=== PATIENT | female | born 1975 | race Caucasian/White ===

== ENCOUNTER → 2021-02-03 12:53 | Outpatient (BNVA) | payer OTHER, SELFPAY | PROVIDERS: Visit Provider Advanced Practice Midwife ==

== ENCOUNTER → 2021-02-11 09:00 | Outpatient (BNVA) | payer OTHER, SELFPAY | PROVIDERS: Visit Provider Advanced Practice Midwife | DX: N92.1 Excessive and frequent menstruation with irregular cycle (principal) | CPT/HCPCS: 96372; 99211 ==

== ENCOUNTER 2021-02-22 15:58 | Outpatient (REF) | payer OTHER, SELFPAY ==
--- NOTE | ~2021-02-22 | US_ITS ---
EXAMINATION: US PELVIS CLINICAL INFORMATION: Encounter for gynecological examination. Excessive and frequent menstruation with irregular cycle. COMPARISON: None. TECHNIQUE: Ultrasound of the pelvis is performed using both transabdominal and transvaginal transducers along with Doppler. Transvaginal imaging is performed due to inadequate visualization transabdominally. FINDINGS: UTERUS: The uterus is retroverted and measures 8.4 x 4.3 x 5.3 cm. Total uterine volume 100.2 mL. There is a small amount of fluid in the cervix. The double wall endometrial thickness is 0.8 mm. The uterus is smooth in contour. There is somewhat heterogeneous myometrium with multiple small cysts which may be in the junctional zone. There is a fibroid in the left body measuring 1.6 x 1.2 x 1.3 cm. ADNEXA: Both ovaries are visualized. There is normal color flow to the adnexa. There is no ovarian torsion. There is no pelvic ascites or fluid collection. The right ovary is only seen transabdominally. Right ovary measures 2.0 x 1.2 x 1.3 cm. Volume 1.6 mL. Left ovary measures 3.5 x 2.3 x 2.4 cm. Volume 10.1 mL. There is a dominant follicle measuring 2.8 x 2.1 x 2.2 cm. US/US pelvic and transvaginal IMPRESSION: 1. Heterogeneous myometrium or junctional with multiple small cysts. 2. A 1.6 cm uterine fibroid.
== END 2021-02-22 15:59 | disposition home or self-care (01) ==
LOC: HO.US 15:58
PROVIDERS: PCP Family Medicine; Visit Provider Advanced Practice Midwife
DX: Z01.419 Encounter for gynecological examination (general) (routine) without abnormal findings (principal); N92.1 Excessive and frequent menstruation with irregular cycle; N92.4 Excessive bleeding in the premenopausal period
CPT/HCPCS: 76830; 76856

== ENCOUNTER → 2021-02-25 13:43 | Outpatient (BNVA) | payer OTHER, SELFPAY | PROVIDERS: PCP Family Medicine; Visit Provider Obstetrics & Gynecology | DX: N92.4 Excessive bleeding in the premenopausal period (principal); N93.9 Abnormal uterine and vaginal bleeding, unspecified | CPT/HCPCS: 99212 ==

== ENCOUNTER 2021-04-29 12:52 | Outpatient (REF) | payer OTHER, SELFPAY ==
[2021-04-29 13:35] LABS: Hematocrit 41.7 % (37.0-47.0); Hemoglobin 13.6 g/dl (12.0-16.0); Mean Corpuscular HGB Conc 32.6 g/dl (31.0-35.0); Mean Corpuscular Hemoglobin 26.4 pg (27.0-33.0); Mean Platelet Volume 9.3 fL (9.4-12.3); Platelet Count 258 X10*3/uL (160-400); Red Blood Count 5.15 X10*6/uL (4.20-5.50); Red Cell Distribution Width 16.2 % (11.0-16.0); White Blood Count 5.7 X10*3/uL (4.8-10.8)
[2021-04-29 14:11] LABS: HCG Quantitative < 2 mIU/mL
== END 2021-04-29 12:53 | disposition home or self-care (01) ==
LOC: HO.LAB 12:52
PROVIDERS: Absent Provider Obstetrics & Gynecology; PCP Family Medicine; Visit Provider Advanced Practice Midwife
DX: Z30.42 Encounter for surveillance of injectable contraceptive (principal); N93.9 Abnormal uterine and vaginal bleeding, unspecified
CPT/HCPCS: 36415; 84702; 85027; 96372; 99211

== ENCOUNTER 2023-12-07 07:59 | Outpatient (AMB) | payer OTHER, SELFPAY ==
--- NOTE | 2023-12-07 08:09 | A.OFFPC_ITS ---
Vital Signs 12/07/23 08:13 Height 5 ft 0.63 in Weight 130 lb BMI 24.9 BP 128/84 Blood Pressure Location Lt brachial Position Sitting Respiration 14 Pulse 85 Pulse Source Pulse Oximeter Temp 98.4 F Temp Source Oral Pulse Oximetry (%) 99 Oxygen Delivery Method Room Air Intake Visit Reasons: FAN from Intake Note: New patient visit Data Compiler Required: No Allergies No Known Allergies Allergy (Verified 12/07/23 08:09) Medication List - Last Reconciled 12/07/23 by Leeanne Wade PA-C No Known Home Meds Tobacco use date assessed: 12/07/23 Dental Screening Dental Screen Date: 12/07/23 Did you have a dental visit in the last 12 months?: Yes Did you have a dental problem in the last 6 months where you did not have access to dental care?: No Was dental information given to patient?: Patient has dentist HPI FAN from HPI Details Patient is a 48-year-old female who presents today to transfer care/cpe. She has a hx of gerd (well controlled with diet) and generalized anxiety. Psych: Anxiety is well-controlled with meditation and breathing exercises. No SI/HI. Was on antianxiety medication approximately 20 years ago. Has never been hospitalized for this. CV: Blood pressure today in the office 128/84. -she does complain today of right finger tip pain that started about a year ago. She states that it is on the 2nd right finger and that the knuckle looks enlarged and is tender at times. No trauma. Mammogram: overdue-never had Pap: overdue- referral to [facility] Colonoscopy: overdue Fam hx: sister has thyroid ca, maternal uncle x2 with colon ca around age 70, maternal grandmother breast ca 80s [facility], [facility] Medical History (Updated 12/07/23 @ 08:46 by Leeanne Wade PA-C) Excessive menstruation with irregular cycle Menorrhagia, premenopausal Aftercare following left shoulder joint replacement surgery Surgical History H/O breast augmentation S/P abdominoplasty Hx of section History of tubal ligation Family History Maternal Grandmother Breast CA Social History Housing: House Alcohol intake: current Alcohol intake frequency: holidays/special occasions only Patient Tobacco Use Status: Current everyday Tobacco user Cigarettes Per Day: 12 Years Smoked: 15 e-Cigarette/Vaping Use: Never Used Second Hand Smoke Exposure: No service: No Current occupational status: employed and unemployed 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 1. Little interest or pleasure in doing things: not at all 2. Feeling down, depressed, or hopeless: not at all 3. Trouble falling or staying asleep, or sleeping too much: nearly every day 4. Feeling tired or having little energy: more than half the days 5. Poor appetite or overeating: not at all 6. Feeling bad about yourself - or that you are a failure or have let yourself or your family down: not at all 7. Trouble concentrating on things, such as reading the newspaper or watching television: more than half the days 8. Moving or speaking so slowly that other people could have noticed. Or the opposite - being so fidgety or restless that you have been moving around a lot more than usual: not at all 9. Thoughts that you would be better off or of hurting yourself in some way: not at all Total score: 7 Depression Screening Interpretation: Positive Depression Screening Follow-up: Existing condition and Declines treatment Depression Screening Done: Yes 21778 - PHQ-9 Billing: Yes Source: Developed by Drs. Chevy Amador, Genie Light, Eris Ferrer and colleagues, with an educational luz from [employer]. Thrive Questionnaire Date Thrive assessed: 12/07/23 I am a: Patient What is your living situation today?: I have a steady place to live Within the past 12 months, did the food you bought not last and you didn't have the money to get more?: Never true Within the past 12 months, did you worry whether your food would run out before you got money to buy more?: Never true Do you have trouble paying for medicines?: No Do you have trouble getting transportation to medical appointments?: No Do you have trouble paying your heating and electricity bill?: No Do you have trouble taking care of your child, family member or friend?: No Do you have trouble with day-to-day activities such as bathing, preparing meals, shopping, managing finances, etc.?: No Are you currently unemployed and looking for a job?: No Are you interested in more education?: No Please select the resources that you would like help with: None Currently or been in a relationship where the following occur: no concerns reported THRIVE Score: 0 AUDIT C Alcohol Use Questionnaire (AUDIT-C) 1. How often do you have a drink containing alcohol?: Monthly or less (5 times a year) 2. How many drinks containing alcohol do you have on a typical day when you are drinking?: 3 or 4 3. How often do you have six or more drinks on one occasion?: Never Total Score: 2 ANDRÉS-7 AMB Questionnaire ANDRÉS-7 Date ANDRÉS - 7 assessed: 12/07/23 Feeling nervous, anxious, or on edge: 2 = More than half the days Not being able to stop or control worryin = More than half the days Worrying too much about different things: 2 = More than half the days Trouble relaxin = Nearly every day Being so restless that it is hard to sit still: 2 = More than half the days Becoming easily annoyed or irritable: 2 = More than half the days Feeling afraid as if something awful might happen: 1 = Several days Total ANDRÉS-7 score (0-4 normal; 5-9 mild; 10-14 moderate; 15-21 severe): 14 Source: Developed by Drs. Chevy Amador, Genie Light, Eris Ferrer and colleagues, with an educational luz from [employer]. ANDRÉS-7 Assessment Billing ANDRÉS-7 Assessment Tool: ANDRÉS-7 Assessment 21252 Physical exam (Primary Care) Tobacco/Smoking Status: Tobacco use Status Patient Tobacco Use Status Former Tobacco user 12/05/23 11:37 e-Cigarette/Vaping Use Never Used 12/05/23 11:37 Are you ready to quit: No Tobacco cessation counseling provided: Yes Items discussed: Nicotine replacement Relapse Prevention: discussed the importance of a supportive environment and discussed dietary, exercise and/or lifestyle changes CPT code: 13511 - 4-10 Minutes (tried chantix in the past and does not want to again. discussed wellbutrin and patches) Depression Screening Interpretation: Positive Depression Screening Follow-up: Existing condition and Declines treatment Currently or been in a relationship where the following occur: no concerns reported Const Orientation/consciousness: patient oriented x3 HENMT Ears: hearing grossly normal bilaterally General nose exam: No nasal polyps present Face and sinus: Yes sinuses nontender Mouth: Normal oral and palatal mucosa present Eyes Pupils: Equal, round and reactive pupils present EOM: EOMs intact bilaterally Neck Neck: Yes full ROM and Yes no lymphadenopathy Thyroid: Thyroid normal Lymphatic: no lymphadenopathy noted Chest Chest palpation & inspection: normal inspection of the chest Resp Auscultation: clear to auscultation bilaterally Cardio Rate: regular rate Rhythm: regular rhythm Heart sounds: S1 normal heart sound present and S2 normal heart sound present Peripheral pulses: Peripheral pulses 2+ throughout GI Other: Soft, nontender Inspection: Yes normal to inspection Palpation (GI): Soft to palpation and Other GI palpation findings present (nontender, no cva tenderness) Auscultation: normoactive bowel sounds General: Yes no CVA tenderness Back/Spine/Pelvis Other: Nontender Back: no CVA tenderness Skin General skin exam: no rashes or lesions noted Neuro General: patient oriented x3, gait normal and no focal motor deficits Cranial nerves: Yes Equal, round and reactive pupils present Motor exam (neuro): 5/5 motor strength present throughout Sensory Exam: double simultaneous stimulation for sensation normal Coordination: [id number] test normal and Romberg test negative Extrem Other: There is some swelling noted over the right 2nd finger D IP on the medial aspect. Nontender. Full range of motion. Good capillary refill. Sensation intact. General: Yes normal to inspection and Yes full ROM Psych Affect: normal affect Attitude: cooperative Thought process: Normal thought process present Thought content: Normal thought content present Insight: Good insight present (Psych) Judgement: Good judgement present (Psych) Results Reviewed Results Reviewed: Laboratory Tests 04/29/21 13:24 WBC 5.7 RBC 5.15 Hgb 13.6 Hct 41.7 Assessment and Plan Assessment & Plan (1) Routine general medical examination at a health care facility: Code(s): Z00.00 - Encounter for general adult medical examination without abnormal findings Plan: reviewed colonoscopy referral ordered mammo ordered referral to [facility] (2) Finger pain, right: Code(s): M79.644 - Pain in right finger(s) Plan: xr ordered. try diclofenac gel (3) Smoker: Code(s): F17.200 - Nicotine dependence, unspecified, uncomplicated Plan: We discussed smoking cessation at length. She started smoking again about 5 years ago and does not feel like she quit right now. She states that if she quits she will do it cold turkey. Does not want medication as she nightmares with Chantix she will if she changes her mind. Orders: Orders Comprehensive [place]. Panel Fast Today Z00.00 - Encounter for general adult medical examination without abnormal findings Lipid Panel Today Z00.00 - Encounter for general adult medical examination without abnormal findings MM screening mammo BI Today Z12.31 - Encounter for screening mammogram for malignant neoplasm of breast Complete Blood Count Auto Diff Today Z00.00 - Encounter for general adult medical examination without abnormal findings TSH reflex Free T4 Today Z00.00 - Encounter for general adult medical examination without abnormal findings XR finger RT min 2V Today M79.644 - Pain in right finger(s) Referrals [facility] Referral Z01.419 - Encounter for gynecological examination (general) (routine) without abnormal findings Gastroenterology Referral Z12.11 - Encounter for screening for malignant neoplasm of colon Coding Level of Care Code Est Pt Prev Care 40-64y(10684) Diagnoses Routine general medical examination at a health care facility Z00.00 Finger pain, right M79.644 Smoker F17.200 Additional Codes Vital Signs *Quality* - CPT code: 85245 - 4-10 Minutes ([id number]) ANDRÉS-7 Assessment Billing - ANDRÉS-7 Assessment Tool: ANDRÉS-7 Assessment 72760 ([id number])
[2023-12-07 08:13] VITALS: BP 128/84; PULSE 85; RESP 14; TEMP 36.9; O2SAT 99; BMI 24.9
== END 2023-12-07 08:43 | disposition home or self-care (01) ==
PROVIDERS: PCP Family Medicine; Visit Provider Physician Assistant
DX: Z00.00 Encounter for general adult medical examination without abnormal findings (principal); M79.644 Pain in right finger(s); F17.200 Nicotine dependence, unspecified, uncomplicated
CPT/HCPCS: 99396

== ENCOUNTER 2023-12-07 08:50 | Outpatient (REF) | payer OTHER, SELFPAY ==
[2023-12-07 11:42] LABS: MANUAL DIFF FLAG NO
[2023-12-07 11:59] LABS: Basophils Percent Auto 0.2 % (0-2); Eosinophils Percent Auto 0.4 % (0-4); Hematocrit 43.6 % (37.0-47.0); Hemoglobin 14.6 g/dl (12.0-16.0); Imm Gran Abs Auto 0.01 X10*3/uL (0.00-0.03); Imm Gran Pct Auto 0.2 % (0.0-0.4); Lymphocytes Absolute Auto 1.5 X10*3/uL (1.2-4.9); Lymphocytes Percent Auto 32.2 % (20-40); Mean Corpuscular HGB Conc 33.5 g/dl (31.0-35.0); Mean Corpuscular Hemoglobin 28.5 pg (27.0-33.0); Mean Corpuscular Volume 85.2 fL (80.0-98.0); Mean Platelet Volume 9.5 fL (9.4-12.3); Monocytes Absolute Auto 0.3 X10*3/uL (0.1-1.2); Monocytes Percent Auto 6.6 % (2-11); Neutrophils Absolute Auto 2.8 x10*3/uL (2.0-8.3); Neutrophils Percent Auto 60.4 % (45-73); Platelet Count 246 X10*3/uL (160-400); Red Blood Count 5.12 X10*6/uL (4.20-5.50); Red Cell Distribution Width 13.1 % (11.0-16.0); White Blood Count 4.6 X10*3/uL (4.8-10.8)
[2023-12-07 12:25] LABS: Alanine Aminotransferase 19 U/L (0-31); Albumin Level 4.9 g/dL (3.5-5.0); Alkaline Phosphatase 75 U/L (39-117); Anion Gap 12 (12-20); Aspartate Amino Transferase 17 U/L (5-31); Bilirubin Total 0.4 mg/dL (0.0-1.0); Blood Urea Nitrogen 15 mg/dL (9-16); Calcium 10.5 mg/dL (8.4-10.2); Carbon Dioxide 27 mmol/L (22-29); Chloride 105 mmol/L (96-108); Cholesterol 207 mg/dL (<200); Estimated Glomerular Filt Rate > 60; Glucose Fasting 94 mg/dL (60-99); HDL Cholesterol 54 mg/dL (>40); LDL Cholesterol Calculated 134 mg/dL (<100); Potassium 4.1 mmol/L (3.3-5.1); Sodium 140 mmol/L (135-145); Total Protein 7.9 g/dL (6.5-8.0); Triglycerides 97 mg/dL (<150)
== END 2023-12-07 08:51 | disposition home or self-care (01) ==
LOC: HO.WFDLDS 08:50
PROVIDERS: Visit Provider Physician Assistant
DX: Z00.00 Encounter for general adult medical examination without abnormal findings (principal)
CPT/HCPCS: 36415; 80053; 80061; 84443; 85025

== ENCOUNTER 2024-01-08 15:33 | Outpatient (REF) | payer OTHER, SELFPAY ==
--- NOTE | ~2024-01-08 | MM_ITS ---
EXAMINATION: MM SCREENING DIGITAL BREAST TOMOSYNTHESIS, BILATERAL CLINICAL INFORMATION: Screening. Asymptomatic. COMPARISON: Mammography: This is a baseline mammogram. TECHNIQUE: Digital mammography is performed in craniocaudal and mediolateral oblique views along with computer-aided detection (CAD). Digital breast tomosynthesis is performed in implant-displaced craniocaudal and implant-displaced mediolateral oblique views along with computer-aided detection (CAD). Synthesized 2D images are generated from the tomosynthesis. FINDINGS: There are scattered areas of fibroglandular density (ACR BI-RADS breast composition Category b). There are bilateral, mammographically intact silicone breast implants. There are no significant masses, abnormal calcifications, or other abnormalities. MM/MM tomosynthesis screen imp BI IMPRESSION: There are no significant changes from prior study. ASSESSMENT: BI-RADS BI-RADS 1 - Negative RECOMMENDATION: Routine annual mammography screening. 1 year F/U This patient's information was entered into a reminder system with a target due date for their next mammogram.
== END 2024-01-08 15:34 | disposition home or self-care (01) ==
LOC: HO.MAMMO 15:33
PROVIDERS: PCP Physician Assistant; Visit Provider Physician Assistant
DX: Z12.31 Encounter for screening mammogram for malignant neoplasm of breast (principal)
CPT/HCPCS: 77063; 77067

== ENCOUNTER → 2024-01-08 15:45 | Outpatient (BNV) | payer OTHER, SELFPAY | PROVIDERS: PCP Physician Assistant; Visit Provider Radiology Diagnostic Radiology | DX: Z12.31 Encounter for screening mammogram for malignant neoplasm of breast (principal) | CPT/HCPCS: 77063; 77067 ==

== ENCOUNTER 2024-02-28 10:01 | Outpatient (AMB) | payer OTHER, SELFPAY ==
--- NOTE | 2024-02-28 10:02 | MHC.OFFVIS ---
Vital Signs 02/28/24 10:03 Height 5 ft 0.63 in Weight 131 lb BMI 25.1 BP 126/85 Blood Pressure Location Lt brachial Position Sitting Pulse 79 Intake Visit Reasons: Colonoscopy Screening Intake Note: New consult for 1st pre colonoscopy screening Patient cc: between diarrhea and constipation on and off, denies any other GI concern for today. 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 She is referred by Leeanne Wade of [facility] [place] [place] primary care. PMX Smoker GERD Anxiety Menometrorrhagia * SURGICAL HISTORY section Tubal ligation Abdominoplasty Breast augmentation Bicept tendon repair * ALLERGIES: no opiates r/t N/V * [employer] LABS: Laboratory Tests 12/07/23 08:52 WBC 4.6 L Hgb 14.6 Hct 43.6 Plt Count 246 Total Bilirubin 0.4 AST 17 ALT 19 Alkaline Phosphatase 75 TSH 0.70 TODAY'S VISIT This is her first colonoscopy She has suffered IBS-M, mother has similar, not hard stools but applesauce consistency. Lactose only thing will cause watery stools. She is not c/w fiber intake, she drinks a lot of water. She does have cramping in the looser stool phase. There is no known history of food allergies except for the lactose intolerance in the family, no known history of inflammatory bowel disease. She finds the symptoms somewhat uncomfortable with bloating and cramping and inconvenient so she would not mind having a bit of a more thorough workup. She denies any cardiac or respiratory problems. There are no prior problems with anesthesia or sedation NO ID problems Her maternal uncle had CRC she is unsure if her mother ever had colon polyps. Return office visit in 6 weeks go with the labs and consider if additional testing or stool samples are needed. No medical intervention was attempted today although using something like dicyclomine may be reasonable on a p.r.n. basis going forward or encouraging a fiber supplement to give her better bowel regularity. [facility] Medical History (Updated 02/28/24 @ 10:33 by DEBORAH Gutierrez) Cervical cancer screening Excessive menstruation with irregular cycle Menorrhagia, premenopausal Aftercare following left shoulder joint replacement surgery Surgical History H/O breast augmentation S/P abdominoplasty Hx of section History of tubal ligation Family History Maternal Grandmother Breast CA Social History Housing: House Alcohol intake: current Alcohol intake frequency: holidays/special occasions only Patient Tobacco Use Status: Current everyday Tobacco user Cigarettes Per Day: 12 Years Smoked: 15 e-Cigarette/Vaping Use: Never Used Second Hand Smoke Exposure: No service: No Current occupational status: employed and unemployed 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 Current occupational exposures/hazards: No Gender identity: Female Cognitive needs: No Hearing needs: No Vision needs: No Female Reproductive History Menstrual Age of Menarche: 11 Review of Systems Const Denies fatigue, Denies fever(s), Denies night sweats, Denies poor appetite and Denies weight loss ENT Reports Normal hearing present, Denies dental pain, Denies dysphagia, Denies hearing loss, Denies mouth pain, Denies odynophagia, Denies throat swelling, Denies tongue swelling and Reports other (Dentition adequate) Card Reports no additional complaints Resp Reports no additional complaints GI Details: Denies abdominal pain, Denies melena, Denies bloating, Denies hematochezia, Reports constipation, Denies GI cramping, Denies dysphagia, Denies excessive flatus, Denies early satiety, Reports heartburn, Reports diarrhea, Denies nausea, Denies odynophagia, Denies vomiting and Denies hematemesis Skin/Breast Denies pruritus, Denies lesions, Denies rash and Denies jaundice Neuro Reports Normal hearing present and Denies Abnormal speech present Endo Denies fatigue Aller/Immun Denies throat swelling and Denies tongue swelling Physical Exam Vital Signs: Last Vital Signs Pulse 79 02/28/24 10:03 BP 126/85 02/28/24 10:03 BMI result Body Mass Index 25.1 Const General: cooperative, no acute distress, well developed and well groomed Nutritional Appearance: well nourished and overweight Orientation/consciousness: oriented to person, oriented to place and oriented to time Limitations: No language barrier HEENT Head: Yes normocephalic and Yes atraumatic Eyes General: appearance normal, both eyes and all related structures Pupils: Equal, round and reactive pupils present Neck Neck: Yes normal visual inspection and Yes no lymphadenopathy Thyroid: Thyroid normal Resp Effort & Inspection: normal respiratory effort and able to speak in complete sentences Auscultation: clear to auscultation bilaterally Cardio Rate: regular rate Rhythm: regular rhythm Heart sounds: Normal, physiologic split S2 sound present Peripheral pulses: radial pulses present and posterior tibial pulses present GI Inspection: No distended, No Abdominal panniculus present and Yes striae Palpation (GI): Soft to palpation, nontender, no guarding, not rigid and No hepatosplenomegaly present Percussion: Yes normal to percussion Auscultation: normal bowel sounds Rectal Exam - Female: deferred Abdomen image: 1. Surgical scars 2. Skin General skin exam: no rashes or lesions noted, turgor normal, skin not dry, no jaundice, No spider nevi and no striae Rashes: no rashes Nails: normal Neuro General: oriented to person, oriented to place and oriented to time Cranial nerves: Yes Equal, round and reactive pupils present and Yes Normal hearing present Speech: No Abnormal speech present Extrem General: Yes normal to inspection, No clubbing, No cyanosis and No edema Psych Appearance: grossly normal and well kempt Mental Status: mental status grossly normal Speech and movement: Normal speech and movement present Affect: normal affect Attitude: cooperative Thought process: Normal thought process present and not confabulating Thought content: Normal thought content present Insight: Fair insight present (Psych) Judgement: Fair judgement present (Psych) Assessment & Plan Assessment & Plan (1) Diarrhea: Code(s): R19.7 - Diarrhea, unspecified Category: Medical Plan This is her first colonoscopy She has suffered IBS-M, mother has similar, not hard stools but applesauce consistency. Lactose only thing will cause watery stools. She is not c/w fiber intake, she drinks a lot of water. She does have cramping in the looser stool phase. There is no known history of food allergies except for the lactose intolerance in the family, no known history of inflammatory bowel disease. She finds the symptoms somewhat uncomfortable with bloating and cramping and inconvenient so she would not mind having a bit of a more thorough workup. She denies any cardiac or respiratory problems. There are no prior problems with anesthesia or sedation NO ID problems Her maternal uncle had CRC she is unsure if her mother ever had colon polyps. Return office visit in 6 weeks go with the labs and consider if additional testing or stool samples are needed. No medical intervention was attempted today although using something like dicyclomine may be reasonable on a p.r.n. basis going forward or encouraging a fiber supplement to give her better bowel regularity. Orders: Orders C Reactive Protein Today R19.7 - Diarrhea, unspecified Colonoscopy - GI Use Only Today Z01.818 - Encounter for other preprocedural examination Transglutaminase IgA Today R19.7 - Diarrhea, unspecified Transglutaminase Ab IgG Today R19.7 - Diarrhea, unspecified Rast Allergen Today R19.7 - Diarrhea, unspecified Medications: New sodium,potassium,mag sulfates 17.5-3.13-1.6 gram (Suprep Bowel Prep Kit) 480 mL orally; FOR COLONOSCOPY PREP 354 mL 0RF Coding Level of Care Code New Pt Level 3 (68702) Diagnoses Diarrhea R19.7
[2024-02-28 10:03] VITALS: BP 126/85; PULSE 79; BMI 25.1
== END 2024-02-28 10:42 | disposition home or self-care (01) ==
PROVIDERS: PCP Family Medicine; Visit Provider Nurse Practitioner
DX: R19.7 Diarrhea, unspecified (principal)
CPT/HCPCS: 99203

== ENCOUNTER → 2024-02-28 10:01 | Outpatient (BNVA) | payer OTHER, SELFPAY | PROVIDERS: PCP Family Medicine; Visit Provider Nurse Practitioner | DX: R19.7 Diarrhea, unspecified (principal) | CPT/HCPCS: 99202 ==

== ENCOUNTER 2024-02-28 12:46 | Outpatient (REF) | payer OTHER, SELFPAY ==
[2024-02-28 15:00] LABS: C Reactive Protein < 0.10 mg/dL (< or = 0.50)
[2024-02-28 15:05] LABS: Parathyroid Hormone Intact 65.4 pg/mL (8.7-77.1)
[2024-02-29 21:17] LABS: Transglutaminase Ab IgG <1.0 U/mL; Transglutaminase IgA <1.0 U/mL
[2024-03-01 15:13] LABS: Calcium, Ionized 5.2 mg/dL (4.7-5.5)
[2024-03-03 13:28] LABS: VITAMIN D (1,25 OH) D3 83 pg/mL; Vit D (1,25-Dihydroxy) Total 83 pg/mL (18-72); Vitamin D (1,25 OH) D2 <8 pg/mL
== END 2024-02-28 12:47 | disposition home or self-care (01) ==
LOC: HO.WFDLDS 12:46
PROVIDERS: Referring Provider Physician Assistant; Visit Provider Nurse Practitioner
DX: Z01.818 Encounter for other preprocedural examination (principal); R19.7 Diarrhea, unspecified; E83.52 Hypercalcemia
CPT/HCPCS: 36415; 82330; 82652; 83970; 86003; 86140; 86364

== ENCOUNTER 2024-04-12 12:52 | Outpatient (AMB) | payer OTHER, SELFPAY ==
--- NOTE | 2024-04-12 12:55 | A.OFFVIS_ITS ---
Vital Signs 04/12/24 13:10 Height 5 ft 0.63 in Weight 134 lb 0.657 oz BMI 25.6 BP 138/87 Blood Pressure Location Lt brachial Position Sitting Pulse 70 Intake Visit Reasons: 6 week follow up Intake Note: Ciera presents in follow up of diarrhea. CC: Patient reports doing the same, denies having any new GI concerns today. 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 Lactose only thing will cause watery stools. She is not c/w fiber intake, she drinks a lot of water. She does have cramping in the looser stool phase. There is no known history of food allergies except for the lactose intolerance in the family, no known history of inflammatory bowel disease. She finds the symptoms somewhat uncomfortable with bloating and cramping and inconvenient so she would not mind having a bit of a more thorough workup. She denies any cardiac or respiratory problems. There are no prior problems with anesthesia or sedation NO ID problems Her maternal uncle had CRC she is unsure if her mother ever had colon polyps. Return office visit in 6 weeks go with the labs and consider if additional testing or stool samples are needed. No medical intervention was attempted today although using something like dicyclomine may be reasonable on a p.r.n. basis going forward or encouraging a fiber supplement to give her better bowel regularity. Orders: Orders C Reactive Protein Today R19.7 - Diarrhea, unspecified Colonoscopy - GI Use Only Today Z01.818 - Encounter for other preprocedural examination Transglutaminase IgA Today R19.7 - Diarrhea, unspecified Transglutaminase Ab IgG Today R19.7 - Diarrhea, unspecified Rast Allergen Today R19.7 - Diarrhea, unspecified Medications: New sodium,potassium,mag sulfates 17.5-3.13-1.6 gram (Suprep Bowel Prep Kit) LABS: Laboratory Tests 02/28/24 12:48 Tiss Transglutamin IgG <1.0 Tiss Transglutamin IgA <1.0 Laboratory Tests 02/28/24 12:48 C-Reactive Protein < 0.10 RAST panel shows no significant food allergies RAST PANEL SHOWS NO SIGNIFICANT FOOD ALLERGY COLONOSCOPY 06/04/2024 BIOPSY TODAY'S VISIT We review all the labs that at this point it really seems evident that there is no disease process at work except for functional bowel disorder. Because she has IBS-M we discussed the role of fiber therapy as first-line treatment and I strongly suggest a supplement with something like Benefiber or Citrucel. She is also agreeable to having trial of dicyclomine as well. She is aware of her upcoming colonoscopy at this point I will see her after that. [facility] Medical History (Updated 04/12/24 @ 13:25 by DEBORAH Gutierrez) Pre-op examination Diarrhea Cervical cancer screening Excessive menstruation with irregular cycle Menorrhagia, premenopausal Aftercare following left shoulder joint replacement surgery Surgical History (Updated 04/12/24 @ 13:25 by DEBORAH Gutierrez) H/O breast augmentation S/P abdominoplasty Hx of section History of tubal ligation Family History Maternal Grandmother Breast CA Social History Housing: House Alcohol intake: current Alcohol intake frequency: holidays/special occasions only Patient Tobacco Use Status: Current everyday Tobacco user Cigarettes Per Day: 12 Years Smoked: 15 e-Cigarette/Vaping Use: Never Used Second Hand Smoke Exposure: No service: No Current occupational status: employed and unemployed 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 Current occupational exposures/hazards: No Gender identity: Female Cognitive needs: No Hearing needs: No Vision needs: No Female Reproductive History Menstrual Age of Menarche: 11 Review of Systems Const Denies fatigue, Denies fever(s), Denies night sweats, Denies poor appetite and Denies weight loss ENT Reports Normal hearing present, Denies dental pain, Denies dysphagia, Denies hearing loss, Denies mouth pain, Denies odynophagia, Denies throat swelling, Denies tongue swelling and Reports other (Dentition adequate) Card Reports no additional complaints Resp Reports no additional complaints GI Details: Denies abdominal pain, Denies melena, Denies bloating, Denies hematochezia, Reports constipation, Reports GI cramping, Denies dysphagia, Denies excessive flatus, Denies early satiety, Denies heartburn, Reports diarrhea, Denies nausea, Denies odynophagia, Denies vomiting and Denies hematemesis Skin/Breast Denies pruritus, Denies lesions, Denies rash and Denies jaundice Neuro Reports Normal hearing present and Denies Abnormal speech present Endo Denies fatigue Aller/Immun Denies throat swelling and Denies tongue swelling Physical Exam Vital Signs: Last Vital Signs Pulse 70 04/12/24 13:10 BP 138/87 04/12/24 13:10 BMI result Body Mass Index 25.6 Const General: cooperative, no acute distress, well developed and well groomed Nutritional Appearance: average body habitus and well nourished Orientation/consciousness: oriented to person, oriented to place and oriented to time Limitations: No language barrier HEENT Head: Yes normocephalic and Yes atraumatic Eyes General: appearance normal, both eyes and all related structures Pupils: Equal, round and reactive pupils present Neck Neck: Yes normal visual inspection and Yes no lymphadenopathy Thyroid: Thyroid normal Resp Effort & Inspection: normal respiratory effort and able to speak in complete sentences Auscultation: clear to auscultation bilaterally Cardio Rate: regular rate Rhythm: regular rhythm Heart sounds: Normal, physiologic split S2 sound present Peripheral pulses: radial pulses present and posterior tibial pulses present GI Inspection: No distended and No Abdominal panniculus present Palpation (GI): Soft to palpation, nontender, no guarding, not rigid and No hepatosplenomegaly present Percussion: Yes normal to percussion Auscultation: normal bowel sounds Rectal Exam - Female: deferred Skin General skin exam: no rashes or lesions noted, turgor normal, skin not dry, no jaundice, No spider nevi and no striae Rashes: no rashes Nails: normal Neuro General: oriented to person, oriented to place and oriented to time Cranial nerves: Yes Equal, round and reactive pupils present and Yes Normal hearing present Speech: No Abnormal speech present Extrem General: Yes normal to inspection, No clubbing, No cyanosis and No edema Psych Appearance: grossly normal and well kempt Mental Status: mental status grossly normal Speech and movement: Normal speech and movement present Affect: normal affect Attitude: cooperative Thought process: Normal thought process present and not confabulating Thought content: Normal thought content present Insight: Fair insight present (Psych) Judgement: Fair judgement present (Psych) Results Reviewed Results Reviewed: Laboratory Tests 02/28/24 12:48 Tiss Transglutamin IgG <1.0 Tiss Transglutamin IgA <1.0 Laboratory Tests 02/28/24 12:48 C-Reactive Protein < 0.10 RAST panel shows no significant food allergies RAST PANEL SHOWS NO SIGNIFICANT FOOD ALLERGY Assessment & Plan Assessment & Plan (1) IBS (irritable bowel syndrome): Code(s): K58.9 - Irritable bowel syndrome, unspecified Category: Medical (2) GERD (gastroesophageal reflux disease): Code(s): K21.9 - Gastro-esophageal reflux disease without esophagitis Category: Medical Plan We review all the labs that at this point it really seems evident that there is no disease process at work except for functional bowel disorder. Because she has IBS-M we discussed the role of fiber therapy as first-line treatment and I strongly suggest a supplement with something like Benefiber or Citrucel. She is also agreeable to having trial of dicyclomine as well. She is aware of her upcoming colonoscopy at this point I will see her after that. COLONOSCOPY 06/04/2024 BIOPSY Medications: New dicyclomine 20 mg PO QID 120 tabs 6RF 30 days K58.9 - Irritable bowel syndrome, unspecified Coding Level of Care Code Est Pt Level 3 (99384) Diagnoses IBS (irritable bowel syndrome) K58.9 GERD (gastroesophageal reflux disease) K21.9
[2024-04-12 13:10] VITALS: BP 138/87; PULSE 70; BMI 25.6
== END 2024-04-12 13:27 | disposition home or self-care (01) ==
PROVIDERS: PCP Family Medicine; Visit Provider Nurse Practitioner
DX: K58.9 Irritable bowel syndrome, unspecified (principal); K21.9 Gastro-esophageal reflux disease without esophagitis
CPT/HCPCS: 99213

== ENCOUNTER → 2024-04-12 12:52 | Outpatient (BNVA) | payer OTHER, SELFPAY | PROVIDERS: PCP Family Medicine; Visit Provider Nurse Practitioner | DX: K58.9 Irritable bowel syndrome, unspecified (principal); K21.9 Gastro-esophageal reflux disease without esophagitis | CPT/HCPCS: 99212 ==

== ENCOUNTER 2025-02-12 11:09 | Outpatient (AMB) | payer OTHER, SELFPAY ==
--- NOTE | 2025-02-12 11:25 | MHC.PC.OV ---
Vital Signs 02/12/25 11:27 Height 5 ft Weight 132 lb 8 oz BMI 25.9 BP 139/87 Blood Pressure Location Rt brachial Position Sitting Pulse 70 Pulse Source Pulse Oximeter Temp 98.2 F Temp Source Temporal Artery Scan Pulse Oximetry (%) 99 Oxygen Delivery Method Room Air Intake Visit Reasons: cold/flu symptoms (mask) Intake Note: Fever Monday and Monday. Fever broke Monday. Congestion, fatigue, decreased appetite, couch, dizzy, sore throat. Cadd Instructor Required: No Allergies opiates Adverse Reaction (Severe, Uncoded 02/12/25 11:26) Nausea and Vomiting Medication List - Last Reconciled 02/12/25 by Leeanne Wade PA-C nicotine 1 patch transdermal Q24H Tobacco use date assessed: 02/12/25 Dental Screening Dental Screen Date: 02/12/25 Did you have a dental visit in the last 12 months?: Yes Did you have a dental problem in the last 6 months where you did not have access to dental care?: No Was dental information given to patient?: Patient has dentist HPI cold/flu symptoms (mask) HPI Details Patient is a 50-year-old female who presents today with sick symptoms. She states that about 5 or 6 days ago she started to feel sick. It started with congestion, fever, chills, body aches and a cough. She states that she feels better from a fever standpoint. The fever lasted 2-3 days but the congestion in the coughing is lingering. She reports sinus pain and pressure. Sometimes the cough is intermittently productive. She has also noticed some wheezing. No nausea, vomiting or diarrhea. Someone at work was sick with similar symptoms. [facility] Medical History (Updated 02/13/25 @ 10:15 by Leeanne Wade PA-C) Anxiety Anemia GERD (gastroesophageal reflux disease) IBS (irritable bowel syndrome) Diarrhea Cervical cancer screening Menorrhagia, premenopausal Surgical History (Updated 04/12/24 @ 13:25 by DEBORAH Gutierrez) H/O breast augmentation S/P abdominoplasty Hx of section History of tubal ligation Family History Maternal Grandmother Breast CA Social History Housing: House Alcohol intake: current Alcohol intake frequency: holidays/special occasions only Patient Tobacco Use Status: Former Tobacco user (quit 2-3 weeks ago) Cigarettes Per Day: 12 Years Smoked: 15 e-Cigarette/Vaping Use: Never Used Second Hand Smoke Exposure: No service: No Current occupational status: employed and unemployed 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 1. Little interest or pleasure in doing things: not at all 2. Feeling down, depressed, or hopeless: not at all 3. Trouble falling or staying asleep, or sleeping too much: not at all 4. Feeling tired or having little energy: several days 5. Poor appetite or overeating: several days 6. Feeling bad about yourself - or that you are a failure or have let yourself or your family down: not at all 7. Trouble concentrating on things, such as reading the newspaper or watching television: not at all 8. Moving or speaking so slowly that other people could have noticed. Or the opposite - being so fidgety or restless that you have been moving around a lot more than usual: not at all 9. Thoughts that you would be better off or of hurting yourself in some way: not at all Total score: 2 Source: Developed by Drs. Chevy Amador, Genie Light, Eris Ferrer and colleagues, with an educational luz from [employer]. Thrive Questionnaire Date Thrive assessed: 02/11/25 I am a: Patient What is your living situation today?: I have a steady place to live Within the past 12 months, did the food you bought not last and you didn't have the money to get more?: Never true Within the past 12 months, did you worry whether your food would run out before you got money to buy more?: Never true Do you have trouble paying for medicines?: No Do you have trouble getting transportation to medical appointments?: No Do you have trouble paying your heating and electricity bill?: No Do you have trouble taking care of your child, family member or friend?: No Do you have trouble with day-to-day activities such as bathing, preparing meals, shopping, managing finances, etc.?: No Are you currently unemployed and looking for a job?: No Are you interested in more education?: No Please select the resources that you would like help with: None Currently or been in a relationship where the following occur: No concerns reported THRIVE Score: 0 AUDIT C Alcohol Use Questionnaire (AUDIT-C) 1. How often do you have a drink containing alcohol?: Monthly or less 2. How many drinks containing alcohol do you have on a typical day when you are drinking?: 1 or 2 3. How often do you have six or more drinks on one occasion?: Never Total Score: 1 ANDRÉS-7 AMB Questionnaire ANDRÉS-7 Date ANDRÉS - 7 assessed: 12/07/23 Feeling nervous, anxious, or on edge: 0 = Not at all Not being able to stop or control worryin = Not at all Worrying too much about different things: 0 = Not at all Trouble relaxin = Not at all Being so restless that it is hard to sit still: 0 = Not at all Becoming easily annoyed or irritable: 0 = Not at all Feeling afraid as if something awful might happen: 0 = Not at all Total ANDRÉS-7 score (0-4 normal; 5-9 mild; 10-14 moderate; 15-21 severe): 0 Source: Developed by Drs. Chevy Amador, Genie Light, Eris Ferrer and colleagues, with an educational luz from [employer]. Physical exam (Primary Care) Vital Signs: Last Vital Signs Temp 98.2 F 02/12/25 11:27 Pulse 70 02/12/25 11:27 BP 139/87 02/12/25 11:27 Pulse Ox 99 02/12/25 11:27 Oxygen Delivery Method Room Air 02/12/25 11:27 BMI result Body Mass Index 25.9 Tobacco/Smoking Status: Tobacco use Status Tobacco use date assessed 02/12/25 02/12/25 11:33 Patient Tobacco Use Status Former Tobacco user (quit 2- 02/12/25 11:33 3 weeks ago) e-Cigarette/Vaping Use Never Used 02/12/25 11:33 PHQ-9: PHQ-9 Score PHQ-9: Total score 2 02/12/25 11:46 Thrive Assessment: Date of Thrive Assessment Date Thrive assessed 02/11/25 02/12/25 11:33 Currently or been in a relationship where the following occur: No concerns reported Const Orientation/consciousness: patient oriented x3 HENMT Other: TMs dome-shaped a small air-fluid levels. Nasal mucosa erythematous and edematous. Clear drainage noted. Maxillary sinus tenderness present. Ears: hearing grossly normal bilaterally Neck Thyroid: Thyroid normal Lymphatic: no lymphadenopathy noted Resp Effort & Inspection: normal respiratory effort and able to speak in complete sentences Auscultation: wheezes scattered wheezes Cardio Rate: regular rate Rhythm: regular rhythm Heart sounds: S1 normal heart sound present and S2 normal heart sound present GI Inspection: Yes normal to inspection Palpation (GI): Soft to palpation and Other GI palpation findings present (nontender, no cva tenderness) Auscultation: normoactive bowel sounds Rectal Exam - Female: deferred Skin General skin exam: no rashes or lesions noted Neuro General: patient oriented x3, gait normal and no focal motor deficits Coding Level of Care Code Est Pt Level 3 (48500) Complex EM visit Add On G2211 Diagnoses Wheezing R06.2 Sinusitis J32.9 Assessment & Plan Assessment & Plan (1) Wheezing: Code(s): R06.2 - Wheezing Category: Medical Plan: Prednisone taper ordered. Discussed risks and benefits and adverse effects of this medication. Albuterol to use as needed. (2) Sinusitis: Code(s): J32.9 - Chronic sinusitis, unspecified Category: Medical Plan: I have encouraged her to start with the prednisone and supportive measures. We did discuss that most sinus infections are viral in etiology. If symptoms worsen or global director air and climate change the weekend we discussed that she could try the Augmentin. She will let me know if anything worsens or changes. Patient understands and agrees with the plan. Medications: New prednisone take 3 tab po x 3 days, take 2 tab po x 3 days, 1 tab po x 3 days 18 tabs 0RF amoxicillin-pot clavulanate 875-125 mg 1 tab PO Q12H 20 tabs 0RF albuterol sulfate 90 mcg/actuation (Ventolin HFA) 2 puffs inhalation Q6H PRN 8.5 grams 0RF shortness of breath or wheezing
[2025-02-12 11:27] VITALS: BP 139/87; PULSE 70; TEMP 36.8; O2SAT 99; BMI 25.9
--- OUTSIDE RECORDS SUMMARY | 2025-02-12 12:33 | XMS_ITS | Clinical Summary ---
Author Organization [employer] Address [address] [place] [address] Care Team Providers Care Enamel Drier Name Role Phone Provider, Not In System Primary Care Provider Un available Katarzyna Montgomery OD Unavailable Allergies No known active allergies Medications nicotine (Nicoderm, Step 1) 21 MG/24HR patch APPLY 1 PATCH TRANSDERMALLY EVERY 24 HOURS Active Active Problems No known active problems Family History Medical History Relation Name Comments Glaucoma Maternal Grandmother Cataracts Mother Glaucoma Mother Relation Name Status Comments Maternal Grandmother Mother Social History Tobacco Use Types Packs/Day Years Used Date Smoking Tobacco: Never Assessed Tobacco Cessation:Counseling Given: Not Answered Comments:Process of quitting smoking now. Comments Unknown Sex and Gender Information Value Date Recorded Sex Assigned at Female 08/07/2024 2:14 PM EST Legal Sex Female 12:52 PM EDT Gender Identity Female 08/07/2024 2:14 PM EST Sexual Orientation Straight 08/07/2024 2: 14 PM EST Last Filed Vital Signs Vital Sign Reading Time Taken Comments Blood Pressure 120/90 09/18/2024 10:35 AM EDT Pulse - - Temperature 36.2 C (97.2 F) 09/18/2024 10:35 AM EDT Respiratory Rate - - Oxygen Saturation - - Inhaled Oxygen Concentration - - Weight - - Height - - Body Mass Index - - Plan of Treatment Upcoming Encounters Date Type Department Care Team (Late st Contact Info) Description 09/22/2025 9:00 AM EDT Office Visit [place] [facility] [address] [place], [place] [id number] Katarzyna Montgomery, OD [address] [place] [address] Health Maintenance Due Date Last Done Comments CT Colonography 1976 Colonoscopy 1976 Colorectal Cancer Screening 1976 Depression Screening 1976 FIT DNA/Cologuard 1976 FIT 1976 FOBT 1976 HIV Screening 1976 SDOH Screening 1976 Sigmoidoscopy 1976 Disability Screening 1976 Alcohol/Substance Use Screening 1988 Family Planning (PISQ) 01/01/1991 Hepatitis C Screening 01/01/1994 DTaP/Tdap/Td Vaccines (1 - Tdap) 01/01/1995 Hepatitis B Vaccines (1 of 3 - 19+ 3-dose series) 01/01/1995 Pap Smear 01/01/1997 Cervical Cancer Screening 01/01/2006 HPV/Cotest 01/01/2006 Mammogram 2016 COVID-19 Vaccine ( - 2023-2 5 season) 2024 Influenza Vaccine (#1) 2025 Tobacco Screening 09/18/2025 09/18/2024 Zoster Vaccines (1 of 2) 01/01/2026 RSV Patients and Pa tients Aged 60 years or older (1 - 1-dose 75+ series) 01/01/2051 HIB Vaccines Aged Out No longer eligi ble based on patient's age to complete this topic HPV Vaccines Aged Out No longer eligi ble based on patient's age to complete this topic Hepatitis A Vaccines Aged Out No long er eligible based on patient's age to complete this topic IPV Vaccines Aged Out No longer eligi ble based on patient's age to complete this topic Meningococcal B Vaccine Aged Out No l onger eligible based on patient's age to complete this topic Meningococcal Vaccine Aged Out No rylie jean claude eligible based on patient's age to complete this topic Pneumococcal Vaccine: Pediat rics (0 to 5 Years) and At-Risk Patients (6 to 49) Years Aged Out No longer eligi ble based on patient's age to complete this topic RSV under 20 months Aged Out No longe r eligible based on patient's age to complete this topic Rotavirus Vaccines Aged Out No longer eligible based on patient's age to complete this topic Insurance [facility] [employer] [facility] [employer] [facility] PARTIAL Care Teams Enamel Drier Relationship Specialty Start Date End Date Provider, Not In System PCP - General Family Medicine 09/15/23 Katarzyna Montgomery OD [address] [place] [id number] Optometry 08/07/24
== END 2025-02-12 13:59 | disposition home or self-care (01) ==
LOC: HO.HMCFM 11:10
PROVIDERS: PCP Physician Assistant; Visit Provider Physician Assistant
DX: R06.2 Wheezing (principal); J32.9 Chronic sinusitis, unspecified

== ENCOUNTER → 2025-02-12 11:09 | Outpatient (BNVA) | payer OTHER, SELFPAY | PROVIDERS: PCP Physician Assistant; Visit Provider Physician Assistant | DX: R06.2 Wheezing (principal); J32.9 Chronic sinusitis, unspecified | CPT/HCPCS: 99212 ==